=== PATIENT | male | born 1995 | race Two or more races ===

== ENCOUNTER → 2020-12-30 07:31 | Outpatient (CLI) | payer OTHER | END | disposition home or self-care (01) | LOC: LAB 07:31 | PROVIDERS: ATTEND Pediatrics Neonatal-Perinatal Medicine | DX: R05 Cough (principal); Z20.828 Contact with and (suspected) exposure to other viral communicable diseases ==

== ENCOUNTER 2020-12-31 16:48 | Outpatient (CLI) | payer OTHER | END 2020-12-31 16:57 | disposition home or self-care (01) | LOC: LAB 16:48 | PROVIDERS: ATTEND Pediatrics Neonatal-Perinatal Medicine | DX: R05 Cough (principal); R06.02 Shortness of breath; Z03.818 Encounter for observation for suspected exposure to other biological agents ruled out ==

== ENCOUNTER 2021-01-06 16:15 | Outpatient (CLI) | payer OTHER | END 2021-01-06 16:18 | disposition home or self-care (01) | LOC: LAB 16:15 | DX: Z03.818 Encounter for observation for suspected exposure to other biological agents ruled out (principal) ==

== ENCOUNTER 2021-01-10 16:24 | Outpatient (CLI) | payer OTHER | END 2021-01-10 16:28 | disposition home or self-care (01) | LOC: LAB 16:24 | DX: Z03.818 Encounter for observation for suspected exposure to other biological agents ruled out (principal) ==

== ENCOUNTER 2021-01-13 11:20 | Outpatient (CLI) | payer OTHER | END 2021-01-13 11:44 | disposition home or self-care (01) | LOC: LAB 11:20 | DX: Z03.818 Encounter for observation for suspected exposure to other biological agents ruled out (principal) ==

== ENCOUNTER → 2021-01-17 08:10 | Outpatient (CLI) | payer OTHER | END | disposition home or self-care (01) | LOC: LAB 08:10 | PROVIDERS: ATTEND Pediatrics Neonatal-Perinatal Medicine | DX: Z03.818 Encounter for observation for suspected exposure to other biological agents ruled out (principal) ==